=== PATIENT | male | born 1965 | race Caucasian/White ===

== ENCOUNTER → 2016-08-17 | Outpatient (CLI) | payer OTHER ==
[~2016-08-17] MED LIST: ASPI81TA28 PO; GADAVIST IV PRN; LENA15CA PO; ZOLE1INJ12
--- NOTE | 2016-08-17 15:01 | DIAGNOSTIC IMAGING REPORT ---
MRI OF THE CERVICAL SPINE WITH AND WITHOUT CONTRAST CLINICAL HISTORY: Right upper extremity neuropathy. Multiple myeloma. COMPARISON: MRI of the cervical spine July 10, 2013. TECHNIQUE: Utilizing a 1.5 Aleksandra magnet and dedicated coil, multiplanar, multiecho imaging of the cervical spine was performed before and after intravenous administration of 7 of Gadavist. FINDINGS: Alignment of the cervical spine is anatomic. Vertebral body heights are maintained. No marrow replacement is identified. Cervical cord signal and caliber are normal. There is no intracanalicular mass, fluid collection or pathologic enhancement. Paravertebral soft tissues are unremarkable. C2-C3: The central canal and neural foramen are patent. C3-C4: Mild posterior disc osteophyte complex results in mild narrowing of the central canal. The neural foramen are patent. C4-C5: Mild posterior disc osteophyte complex results in mild narrowing of the central canal. There is severe narrowing of the left neural foramen and mild narrowing of the right neural foramen. C5-C6: The central canal is patent. There is severe narrowing of the left neural foramen and mild to moderate narrowing of the right neural foramen. C6-C7: There is mild narrowing of the central canal due to posterior disc osteophyte complex. There is severe left and mild right neural foraminal stenosis. C7-T1: The central canal and neural foramen are patent. IMPRESSION: 1. Mild multilevel degenerative disc disease with minimal multilevel central canal stenosis. Normal cervical cord signal and caliber. 2. Moderate to severe multilevel neural foraminal stenosis, greatest on the left. This is slightly progressed since MRI July 10, 2013. 3. No suspicious marrow replacement. Electronically signed by: Emmanuel Hyde M.D. 08/17/2016 3:00 PM Dictated Date/Time: 08/17/2016 2:53 PM
== END | disposition home or self-care (01) ==
LOC: C.MRI 13:31
PROVIDERS: ATTEND Internal Medicine
DX: G56.91 Unspecified mononeuropathy of right upper limb (principal); M48.02 Spinal stenosis, cervical region